=== PATIENT | male | born 1960 | race Caucasian/White ===

== ENCOUNTER → 2019-07-02 17:45 | Outpatient (CLI) | payer OTHER, SELFPAY ==
--- NOTE | 2019-07-02 | DI.MRI.S_ITS ---
PROCEDURE: MR KNEE LT WO CON INDICATIONS: Pain in left knee TECHNIQUE: Noncontrast sagittal PD fast spin echo and T2 fast spin echo with fat saturation, sagittal 3-D FLASH with fat saturation; coronal T1 spin echo and PD fast spin echo with fat saturation, and axial PD fast spin echo with fat saturation through the knee. COMPARISON: [facility] Outside Film, MR, MR KNEE LEFT WITHOUT CONTRAST, 05/29/2018, 15:59. [facility], CR, XR KNEE ARTHRITIC SERIES LT, 06/22/2019, 8:13. FINDINGS: Image quality: Excellent. Menisci: Patient appears to be status post partial medial meniscectomy, new compared to the prior examination. Residual linear high T2 signal intensity within the posterior horn medial meniscal remnant is present, demonstrating inferior articular surface extension. There is new amorphous high signal intensity within the posterior horn medial meniscus at the meniscal root ligament insertion site, demonstrating superior and inferior to the surface extension. Lateral meniscus is intact. Cruciate ligaments: The anterior cruciate ligament demonstrates mild posterior bowing and redundancy. Posterior cruciate ligament is intact. Medial structures: The medial collateral ligament appears intact. Visualized portions of the pes anserinus tendons appear normal. No abnormal bursal fluid. Lateral structures: The lateral collateral ligament, long and short heads of the biceps femoris tendon appear intact. The popliteus tendon appears normal. Iliotibial band appears normal. Anterior structures: The quadriceps and patellar tendons appear intact. Patellar alignment is normal. No femoral trochlear dysplasia or ventral trochlear prominence. No edema in the infrapatellar fat pad. Bones and cartilage: No bone marrow contusions or fractures. There is mild tricompartmental periarticular osteophyte formation. Mild subchondral degenerative marrow edema within the weightbearing aspects of the medial femoral condyle and medial tibial plateau. Severe diffuse articular cartilage loss overlies the weightbearing aspects of the medial femoral condyle and medial tibial plateau. Joint space: There is a small knee joint effusion and a small Levi's cyst. Normal appearing synovial plicae are incidentally noted. IMPRESSION: 1. Tricompartmental osteoarthritis with associated articular cartilage loss. 2. Post surgical sequelae involving the medial meniscus. There appears to be new degenerative tearing of the posterior horn medial meniscus remnant at the meniscal root ligament insertion site. 3. Partial-thickness tearing of the anterior cruciate ligament. 4. Small knee joint effusion and Levi's cyst. Dictated by: Jyoti Aquino M.D. on 07/03/2019 at 8:33 Approved by: Jyoti Aquino M.D. on 07/03/2019 at 8:41
== END ==
PROVIDERS: PCP Nurse Practitioner Family; Visit Provider Orthopaedic Surgery
DX: M25.562 Pain in left knee (principal); M17.12 Unilateral primary osteoarthritis, left knee; S83.242A Other tear of medial meniscus, current injury, left knee, initial encounter; S83.512A Sprain of anterior cruciate ligament of left knee, initial encounter; M25.462 Effusion, left knee; M71.22 Synovial cyst of popliteal space [Baker], left knee
CPT/HCPCS: 73721

== ENCOUNTER → 2019-07-06 08:47 | Outpatient (CLI) | payer OTHER, SELFPAY ==
[2019-07-06 09:34] LABS: Appearance Urine UA CLEAR; Bilirubin Urine UA NEGATIVE (NEGATIVE); Color Urine UA YELLOW; Glucose Urine UA 2+ g/dL (Negative); Ketones Urine UA NEGATIVE (NEGATIVE); Leukocyte Esterase Urine UA NEGATIVE (NEGATIVE); Nitrite Urine UA NEGATIVE (Negative); Occult Blood Urine UA TRACE-INTACT (Negative); Protein Urine UA NEGATIVE (Negative); Urobilinogen Urine UA 0.2 E.U./dL (0.2)
[2019-07-06 09:49] LABS: RBC Urine 0-1/HPF (0-5/HPF); Squamous Epithelial Cell Urine None Seen (0-5/HPF); WBC Urine 1-5/HPF (0-5/HPF)
[2019-07-06 09:50] LABS: Bacteria Urine Few (2-10); Calcium Oxalate Crystals Urine Few; Culture Indicated Urine Cult Not Indicated
[2019-07-06 10:05] LABS: Add Manual Diff / Slide Review NO; Basophils Absolute Auto 100 /uL (0-100); Basophils Percent Auto 0.8 % (0-2); Eosinophils Absolute Auto 200 /uL (0-450); Eosinophils Percent Auto 2.8 % (2-4); Hematocrit 43.5 % (41-53); Hemoglobin 14.6 g/dL (13.5-17.5); Lymphocytes Absolute Auto 1700 /uL (1100-4500); Lymphocytes Percent Auto 23.1 % (25-40); Mean Corpuscular HGB Conc 33.4 % (30-36); Mean Corpuscular Hemoglobin 29.1 PG (26-34); Mean Corpuscular Volume 86.9 fL (80-100); Monocytes Absolute Auto 600 /uL (0-900); Monocytes Percent Auto 8.5 % (3-14); Neutrophils Absolute Auto 4800 /uL (1500-7000); Neutrophils Percent Auto 64.8 % (50-75); Platelet Count 339 X10^3/uL (150-400); Red Blood Cell Count 5.01 X10^6/uL (4.5-5.9); Red Cell Distribution Width 15.8 % (11.6-14.8); White Blood Cell Count 7.4 X10^3/uL (4.5-11.0)
[2019-07-06 10:11] LABS: Hemoglobin A1C% w Est Avg Glu 6.4 % (4.0-6.0)
[2019-07-06 10:41] LABS: BUN Creatinine Ratio 22.9 (6-22); Blood Urea Nitrogen 16 mg/dL (9-20); Calcium 9.9 mg/dL (8.4-10.2); Carbon Dioxide 26 mmol/L (22-32); Chloride 103 mmol/L (98-107); Estimated Glomerular Filt Rate > 60.0 mL/min (>60); Glucose 124 mg/dL (70-100); HEMOLYSIS < 15 (0-50); Potassium 4.3 mmol/L (3.4-5.1); Sodium 139 mmol/L (137-145)
== END ==
PROVIDERS: Visit Provider Orthopaedic Surgery
DX: Z01.818 Encounter for other preprocedural examination (principal); Z01.812 Encounter for preprocedural laboratory examination; N39.9 Disorder of urinary system, unspecified; Z13.1 Encounter for screening for diabetes mellitus; R73.9 Hyperglycemia, unspecified
CPT/HCPCS: 36415; 80048; 81001; 83036; 85025; 93005; 93010

== ENCOUNTER 2019-09-18 06:12 | Inpatient (IN) | payer OTHER, SELFPAY ==
[2019-09-04 12:49] VITALS: BMI 29.8
[2019-09-18] VITALS (13 sets, daily range): BP systolic 100–127; BP diastolic 49–84; PULSE 74–91; RESP 11–18; TEMP 36.4–37.1; O2SAT 91–96; BMI 29.2
--- NOTE | 2019-09-18 06:00 | DI.RAD.S_ITS ---
PROCEDURE: XR KNEE LT 1TO2V INDICATIONS: post op TECHNIQUE: 2 views of the knee were acquired. COMPARISON: None. FINDINGS: Bones: No fractures or dislocations. No suspicious bony lesions. Post surgical changes related to total knee arthroplasty in expected alignment. Soft tissues: Postoperative changes, and drain. IMPRESSION: Expected postoperative appearance Dictated by: Ry Bermudez M.D. on 09/18/2019 at 11:20 Approved by: Ry Bermudez M.D. on 09/18/2019 at 11:21
[2019-09-18] MEDS: ACETAMINOPHEN 325 MG TABLET 975 MG PO (07:06)
[2019-09-18] MEDS: PREGABALIN 75 MG CAPSULE PO (07:06)
[2019-09-18] MEDS: CELECOXIB 200 MG CAPSULE PO (07:06)
[2019-09-18] MEDS: LACTATED RINGERS 1,000 ML 42 ML IV ×2 (07:12→09:28)
[2019-09-18] MEDS: VANCOMYCIN 1,000 MG/200 ML PIGGYBACK 200 MG IV (07:13)
--- NOTE | 2019-09-18 07:39 | PM.PREOP ---
Pre-operative Note Interval Note History & Physical reviewed/Exam performed by Physician: Yes Changes to H&P: No
--- NOTE | 2019-09-18 07:40 | P.OP_ITS ---
Operative Date/Time/Diagnoses Date of procedure: 09/18/19 Time of procedure: 07:40 Pre-op diagnosis: left knee OA Post-op diagnosis: same Procedure & Clinicians Procedure: Left total knee arthroplasty Same procedure as scheduled: Yes Indications: The patient has had progressively worsening left knee pain with radiographic changes consistent with arthritis. Non-operative management has failed and the patient has requested total knee replacement. The risks, benefits and alternatives to surgery were discussed with the patient prior to proceeding. Risks discussed included, but were not limited to, failure to relieve pain, stiffness, infection, nerve damage, deep venous thrombosis, pulmonary embolism, stroke, coma, heart attack, permanent paralysis and , as well as the potential need for eventual revision of the prosthetic. Surgeon: Citlalli Meneses Healthcare Technician: Jayesh Menon Anesthesia Type: General and Spinal Operative Notes Findings: Severe left knee medial compartment arthritis, good stability Closure Type: primary Specimen(s): none sent Prosthetic devices, grafts, tissues, transplants, or devices: Meneses and Nephew Journey BCS 2 size 6 femur, size 6 tibia, +9 poly, 38 mm patella Applied: drain(s) Estimated Blood Loss (mL): 250 Blood products transfused: none Tourniquet time (min): 86 Procedure in detail: The patient was seen in the pre-operative area, where the patient identified the left knee as the operative site and this was marked with my initials. The patient received pre-operative antibiotics, and was taken to the operating room and placed on the operative table in the supine position. After satisfactory anesthesia, a multimedia designer out was performed. The left leg was encircled with a tourniquet about the proximal thigh, and the leg was prepared from the toes to the tourniquet with ChloroPrep in the usual fashion and draped through sterile drapes. The leg was elevated and exsanguinated with Eschmark bandage and the tourniquet inflated to [250] mmHg pressure. The knee was approached through an approximately 18 cm incision centered over the patella and carried into the knee through a medial parapatellar arthrotomy. A portion of the medial and lateral meniscus was resected. Soft tissue was carefully mobilized around the patella the patella was measured with a caliper. Bone was resected from the patella and the patellar height was reconstituted with up an appropriate sized patellar component. A cover was then placed on the patella. A small amount of additional medial and lateral meniscus was resected. The visionare guide fit well to the distal femur. It looked like an appropriate distal femoral cut and the cut was made without difficulty. The rotation was assessed and the appropriate size femoral guide was placed on the distal femur and finishing cuts were made. There was no evidence of notching. The anterior, posterior and chamfer cuts were then made. The posterior osteophytes and soft tissues were then removed. The posterior capsule was injected with part of a mixture of 60 ml 0.25% Marcaine mixed with 20 ml Exparel for post operative pain control. The remainder of this mixture was injected into the capsule and subcutaneous tissues during cement curing. The tibia was prepared and the visionaire guide fit well to the distal tibia. The rotation was assessed. The patient was placed in extension residual medial and lateral meniscus as well as any residual bone was carefully resected. [No] additional tibia was resected. Hemostasis was achieved especially posteriorly. Additional local was injected into the posterior capsule. The extension gap was assessed and additional releases for gap balancing were performed as necessary. It was checked with the gap administrative assistant receptionist. The femoral component was trial was placed and the notch was finished. Trial tibial and femoral components were then placed and the knee placed through a range of motion. Range of motion was [0-130], with good stability throughout the range. The trials were then removed, and the tibia was finished. The bone was prepared with pulsatile lavage, and dried with a sponge. Cement was applied and the final prosthetics placed. Excess cement was removed during and after cement curing. A brief Betadine soak was performed. After confirming there was no extruded cement posteriorly, the final tibial insert was placed. The knee was copiously irrigated and the tourniquet deflated. Hemostasis was obtained with the Bovie cautery. A drain was placed and brought out superolaterally. The capsule was closed with interrupted Vicryl suture. The subcutaneous layer was closed with barbed sutures, and the skin with a running 3-0 V-Lock suture and Surgical glue. An Aquacel Ag dressing was applied and the patient was taken to recovery having tolerated the procedure well. Complications: none Post-operative Condition: stable Disposition: same day surgery Plan for aftercare: The patient will be maintained on a standard total knee replacement protocol with weight bearing as tolerated. The patient will receive aspirin and sequential compression devices for DVT prophylaxis. The patient will be discharged home when safe for the home environment.
[2019-09-18] MEDS: CEFAZOLIN 2 GM/100 ML FROZ.PIGGY IV (08:15)
--- NOTE | 2019-09-18 08:45 | SUR.OPER ---
Supine on padded OR bed. Pillow under head, arms secured on padded armboards <90 degree abduction. Safety belt across torso. Non-operative leg secured with tape over blanket over lower leg. Operative leg secured in DeMayo/Rito positioner. Foam padded brace at thigh of operative leg.
--- NOTE | 2019-09-18 08:49 | SUR.OPER ---
Late in OR because anesthesiologist was called in for epidural in OB.
[2019-09-18] MEDS: TRANEXAMIC ACID 1,000 MG VIAL 1000 MG INJ ×2 (08:51→09:50)
[2019-09-18] MEDS: BUPIVACAINE 0.25% W/ EPI (PF) 10 ML VIAL 60 ML INJ (08:51)
[2019-09-18] MEDS: BUPIVACAINE LIPOSOME 266 MG/20 ML VIAL INJ (08:51)
[2019-09-18] MEDS: SODIUM CHLORIDE IRRIG SOLUTION 250 ML, POVIDONE-IODINE SPONGE STICKS 1 APPLIC IRR (08:55)
[2019-09-18] MEDS: OXYCODONE/ACETAMINOPHEN 5/325 TABLET 1 TAB PO (11:02)
--- NOTE | 2019-09-18 11:20 | SUR.PREOP ---
Block start time [1120] . Monitoring initiated and maintained throughout procedure. Oxygen and medications given per anesthesiologist instructions. Patient remained stable throughout procedure, no adverse reactions noted. Block end time [1130].
--- NOTE | 2019-09-18 11:20 | SUR.PHASEI ---
Patient arrived awake, alert. Denies pain and nausea. Gave po pain medication preemptively. Tolerating po. WEEKS's x 4.
[2019-09-18] MEDS: LACTATED RINGERS 1,000 ML 125 ML IV (11:54)
[2019-09-18] MEDS: IBUPROFEN 400 MG TABLET PO ×2 (11:56→16:28)
[2019-09-18] MEDS: OXYCODONE IR 5 MG TABLET PO ×2 (13:25→16:28)
--- NOTE | 2019-09-18 13:25 | PT.IIE ---
Current Diagnoses Unilateral primary osteoarthritis, left knee (09/18/19) Surgery Performed Operation Date: 09/18/19 07:45 Actual Procedures p Total Knee Arthroplasty(Left) - Citlalli Meneses MD Medical History (Last Updated 09/04/19 @ 13:21 by Julieth Head RN) Acid reflux (Acute) Anxiety (Acute) Diabetes (Acute) Excessive daytime sleepiness (Inactive) HLD (hyperlipidemia) (Acute) HTN (hypertension) (Acute) Insomnia (Chronic) Obstructive sleep apnea of adult (Chronic) Periodic limb movement disorder (PLMD) (Chronic) Physical Therapy Inpatient Evaluation/Re-Eval M1 PT/OT-IP Prior Functional Status Start: 09/18/19 14:26 Freq: NEEDED Status: Active Protocol: Document 09/18/19 13:25 AB (Rec: 09/18/19 15:07 AB [id number]) Medical Review Prior Functional Status Medical History Reviewed Yes Communication able to make needs known Mobility and Gait pt stated that he is independent with all mobilities and ambulation without AD Social History Household Members spouse Living Arrangements House Number of Floors (Floors) Two Floors Number of Stairs To Enter/Railing? 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 M2 PT-IP Current Condition Start: 09/18/19 14:26 Freq: NEEDED Status: Active Protocol: Document 09/18/19 13:25 AB (Rec: 09/18/19 15:07 AB [id number]) Physical Therapy Current Condition Current Condition Evaluation Date 09/18/19 Treatment Diagnosis s/p L TKA; difficulty in walking Onset Date 09/18/2019 Weight Bearing Status Weight Bearing Status Weight Bear as Tolerated M3 PT-IP Subjective Start: 09/18/19 14:26 Freq: NEEDED Status: Active Protocol: Document 09/18/19 13:25 AB (Rec: 09/18/19 15:07 AB [id number]) Subjective Physical Therapy Visit Type Type Initial Evaluation Visit Start Time 13:25 Visit Stop Time 14:16 Total Visit Minutes 51 Number of MUD LOGGER Visits 0 Physical Therapy Visit Comments Patient Comments pt agreeable to do PT Therapy Pain Assessment Pain When Pain Assessed At Rest Pain Present Pain Present Pain Reported Location Left Knee Intensity 6 Scale Used Numeric (1 - 10) Pain Management Techniques Apply Cold,Re-positioning, Timing of Activity with Medications M4 PT-IP Mobility and Gait Start: 09/18/19 14:26 Freq: NEEDED Status: Active Protocol: Document 09/18/19 13:25 AB (Rec: 09/18/19 15:07 AB [id number]) PT-Bed Mobility Assessment Supine to Sit Supine to Sit Standby Assistance Scooting Scooting to Edge of Bed Standby Assistance PT-Transfer Assessment Sit to and From Stand Sit to and from Stand Contact Guard Assistance,1 Person Assistance,Use of Upper Extremities Equipment Transfer Assistive Device Gait Belt,Front Wheeled Walker Orthotic/Prosthetic Devices or Brace: No Transfers Transfer Destination Chair Transfer Technique ambulated using FWW Transfer Ability Level of Assist Standby Assistance,Contact Guard Assistance,1 Person Assistance Comments Mobility Comments BP: 104/68 pt supine in bed and requesting to use the toilet. completed supine to sit SBA. initially c/o lightheadedness but dissipated after a few seconds. BP 113/ 70. pt ambulated to the toilet using FWW SBA to CGA. pt was able to maintain standing using fWW for support SBA. pt ambulated more in room using FWW SBA to occasional CGA. pt rested and agreed to ambulate out in the hallway and completed. pt ambulated towards the stairs using FWW and completed up/ down platform step using FWW SBA to CGA. pt ambulated back to her room using FWW. positioned on chair. call light and table placed within reach. Gait Assessment Gait Gait Assistance Required: Standby Assistance,Contact Guard Assist Distance (Feet) 125 Able to Maintain Weight Bearing Status Yes During Gait Assistive Devices Assistive Device Gait Belt,Front Wheeled Walker Orthotic/Prosthetic Devices or Brace: No Factors Limiting Gait Function Factors Limiting Gait Function Decreased Activity Tolerance, Decreased Sensation,Decreased Strength,Pain,Poor Balance Comments Gait Comments pls refer to mobility section for details completed ambulation using FWW 125+100+ 50 +15 ft initially requiring CGA on 1st ambulation to the toilet but afterwards was only requiring SBA. Stair Climbing Assessment Evaluation Level of Assist On Stairs Standby Assistance,Contact Guard Assistance,1 Person Assistance Devices Stair Climbing Assistive Devices Front Wheel Walker Technique/Endurance Stair Climbing Direction Ascend and Descend Stair Climbing Technique Step Over Step Number of Steps Climbed 1 Query Text: Stair Climbing Set # Repetitions (reps) 2 PT-Balance Assessment Sitting Balance and Reactions Static Sitting Balance Ability Good Dynamic Sitting Balance Ability Good Standing Balance and Reactions Static Standing Balance Ability Fair Dynamic Standing Balance Ability Fair Device Used FWW M5 PT-IP Objective Assessments Start: 09/18/19 14:26 Freq: NEEDED Status: Active Protocol: Document 09/18/19 13:25 AB (Rec: 09/18/19 15:07 [id number]) Orientation Orientation/Cognition Level of Alertness Alert Orientation Name,Age,Birthday,Month,Date, Year,Day of Week,Place, Situation Language Function Ability No Deficits Noted Safety Awareness Understands Safety Issues Memory Description No Deficits Noted Gross Range of Motion Lower Extremity ROM Assessment Within Functional Limits Impairments L knee flexion: ~ 90 deg Strength Lower Extremity Strength Assessment Within Functional Limits Coordination Assessment Gross Coordination Gross Coordination WNL Sensation Assessment Sensation Sensation Description Numbness Comments Sensation Comments c/o numbness on buttocks area Muscle Tone Muscle Tone WNL Yes M6 PT-IP Treatment Start: 09/18/19 14:26 Freq: NEEDED Status: Active Protocol: Document 09/18/19 13:25 AB (Rec: 09/18/19 15:07 [id number]) Physical Therapy Treatment Education Education Provided Precautions,Weight Bearing Status,Post-Op Packet,Safety M7 PT-IP Assessment and Plan Start: 09/18/19 14:26 Freq: NEEDED Status: Active Protocol: Document 09/18/19 13:25 AB (Rec: 09/18/19 15:07 [id number]) PT Summary Assessment and Plan Potential Rehabilitation Potential Good Status of Condition at Evaluation Stable Summary Impairments Pain,ROM,Strength,Balance, Sensation,Bed Mobility, Transfers,Gait,Activity Tolerance Assessment Summary pt requiring SBA to occasional CGA with mobility. pt plans to go home with spouse to assist him. pt may go home when medically stable. pt stated that he is set up for outpt PT. Goals Bed Mobility Goal Independent Transfer Goal Independent,Front Wheeled Walker Gait Goal Independent,Front Wheel Walker Gait Distance 200 Other Goals up/down 1 step using FWW mod I up/down 14 steps 1 rail SBA Days to Meet Goals 3 Frequency of Treatment Frequency Of Treatment Twice a Day Treatment Plan Physical Therapy Treatment Plan Bed Mobility Training,Transfer Training,Gait Training, Therapeutic Exercise,Balance Retraining,Post Op Education, Discharge Planning,Hot or Cold Pack,Neuromuscular Re-ed, Coordination Retraining,Manual Therapy Recommendations To Nursing Amount of Assist Needed 1 Person Assist Discharge Recommendations PT Discharge Recommendations Home with Assistance, Outpatient PT
[2019-09-18] MEDS: ACETAMINOPHEN 325 MG TABLET 650 MG PO (13:26)
--- NOTE | 2019-09-18 14:28 | SUR.PREOP ---
1120 Block start time [] . Monitoring initiated and maintained throughout procedure. Oxygen and medications given per anesthesiologist instructions. Patient remained stable throughout procedure, no adverse reactions noted. Block end time [].
--- NOTE | 2019-09-18 16:08 | PC.NURSE ---
DC notes: Ox3, VS stable. Brayden voided 300 ml urine via urinal. I notified JOHNATHAN Davey that I received order to DC patient but did not have order to DC hemovac drain. She ordered to remove drain which I did. Hemovac with 100 ml sang drainage. Small folded 2x2 gauze pressure drsg applied. Instructed him if this gets saturated with blood to change 2x2 gauze drsg, instructed to leave Aquacel & tata wrap in place, per velasquez path protocol. Patient ambulated to for 2nd void, unmeasured. IVF stopped, IV DC'd, pressure drsg applied. IS teaching reinforced. assisted patient to dress. All belongings gathered, DC instructions provided. Patient ambulated in hallways with 1 SBA/FWW, gait steady. He rates left knee pain 6/10. Will medicate with 1 oxycodone prior to DC.
--- NOTE | 2019-09-19 08:30 | CM.DANOTE ---
DCP/Assessment: Reviewed chart. Cynthia is a 59yr old male admitted [facility] for left TKA performed on 09-18-19. PCP listed is Fareed Pat. Primary payor is 1)[place] [employer]. CM team attempted to see patient this AM, POD#1 but apparently patient had discharged from [facility] on same day of surgery with no identified d/c planning needs. 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 No History Provided By Medical Record Prior Living Arrangements House Household Members spouse Type of transporation used prior to Drives own vehicle admit Willing to Return to Facility? No Independent with ADL's Yes Caregiver for Another No DME Already Rented / Owned FWW / Walker Patient/Family Preference OP PT Therapy Barriers to Discharge No Transportation Arrangement Family Referrals Initiated None needed Whiteboard Updated in Patient Room with No name and ext. # of Leases And Land Supervisor Review Status In Process Next Review Type Continued Stay Review Pre-Anesthesia Assessment Start: 09/04/19 12:49 Freq: Status: Discharge Protocol: Document 09/04/19 12:49 CAB (Rec: 09/04/19 13:22 CAB [id number]) Pre-Anesthesia Assessment PAC Comment Unable to reach pt for scheduled PAC phone call, chart review only. Surgeon H& P not available at time of asssess. Preferred Name Don Patient Information Reviewed Via Phone Assessment Assessment Completed With Patient Diagnostic Results BMP/CMP,CBC,EKG,Urinalysis Comment Labs/EKG @ 07/06/19 Primary Care Provider Fareed Pat Seen Specialist in Last 12 Months Yes Specialist Seen Orthopedist,Sleep specialist Primary Language Thai Jute Bag Sewer Required No Height 180.34 cm Weight 97.069 kg Body Mass Index (BMI) 29.8 Anesthesia Review Requested No Smoking Status Current every day smoker Pain Present Pain Reported Patient is completely paralyzed or No completely immobile Mental Status Oriented to own ability Hx Sleep Apnea Yes CPAP/BIPAP use prescribed and used routinely Currently Taking a Beta Leeann No Anti-Coagulant Therapy No Hx Pacemaker/ICD No Pacemaker Rep Required? No Urinary Catheter Present No Hx Urinary Self Catheterization No Diabetes Yes HgbA1C 6.4 Date 07/06/19 Presence of External or Internal Medical Yes: CPAP Devices Marital Status Lives With spouse Patient Discharge Plan Description Return Home
== END 2019-09-18 16:35 | disposition home or self-care (01) | DRG 470 ==
PROVIDERS: Admitting Provider Orthopaedic Surgery; PCP Emergency Medicine Emergency Medical Services; Visit Provider Orthopaedic Surgery
PROC: 0SRD0JZ Replacement of Left Knee Joint with Synthetic Substitute, Open Approach (ICD-10-PCS; CPT 27447; principal; 2019-09-18 07:45)
DX: M17.12 Unilateral primary osteoarthritis, left knee (principal); I10 Essential (primary) hypertension; K21.9 Gastro-esophageal reflux disease without esophagitis; E11.9 Type 2 diabetes mellitus without complications; J44.9 Chronic obstructive pulmonary disease, unspecified; G47.33 Obstructive sleep apnea (adult) (pediatric); F17.210 Nicotine dependence, cigarettes, uncomplicated; Z79.84 Long term (current) use of oral hypoglycemic drugs
CPT/HCPCS: 64450; 73560; 82962; 97161; 97535; C1776; C9290; J0690; J1100; J2250; J2274; J2405; J2704; J3010

== ENCOUNTER → 2020-06-28 10:59 | Outpatient (CLI) | payer OTHER, SELFPAY ==
[2019-09-18 13:01] VITALS: BMI 29.2
--- NOTE | 2020-06-28 | DI.MRI.S_ITS ---
PROCEDURE: MR KNEE RT WO CON INDICATIONS: Unilateral primary osteoarthritis, right knee TECHNIQUE: Noncontrast sagittal PD fast spin echo and T2 fast spin echo with fat saturation, sagittal 3-D FLASH with fat saturation; coronal T1 spin echo and PD fast spin echo with fat saturation, and axial PD fast spin echo with fat saturation through the knee. COMPARISON: [facility], CR, XR KNEE ARTHRITIC SERIES BI, 06/20/2020, 13:19. [facility], MR, MR KNEE LT WO CON, 07/02/2019, 17:49. FINDINGS: Image quality: Excellent. Menisci: Medial extrusion of the medial meniscus is present. There is linear oblique high signal intensity traversing the posterior horn medial meniscus, demonstrating inferior articular surface extension, indicating oblique tearing. There is vague linear oblique high signal intensity within the lateral meniscal body and anterior horn, demonstrating inferior articular surface extension, indicating oblique tearing. Cruciate ligaments: The anterior and posterior cruciate ligaments appear intact. Medial structures: There is low-grade partial-thickness tearing of the anterior fibers of the medial collateral ligament, which demonstrates mild surrounding T2 signal elevation. Visualized portions of the pes anserinus tendons appear normal. There is mild T2 signal elevation within the semimembranosus at the musculotendinous junction. No abnormal bursal fluid. Lateral structures: The lateral collateral ligament demonstrates mild T2 signal elevation within its substance at the femoral origin. long and short heads of the biceps femoris tendon appear intact. The popliteus tendon appears normal. Iliotibial band appears normal. Anterior structures: The quadriceps and patellar tendons appear intact. Patellar alignment is normal. No femoral trochlear dysplasia or ventral trochlear prominence. No edema in the infrapatellar fat pad. Bones and cartilage: No bone marrow contusions or fractures. Subchondral cysts within the posterior nonweightbearing aspect of the medial femoral condyle and within the anterior weight-bearing aspect of the medial tibial plateau is present. There is moderate tricompartmental periarticular osteophyte formation. There is severe articular cartilage loss diffusely overlying the weight-bearing aspects of the medial femoral condyle and medial tibial plateau. Mild articular cartilage loss diffusely overlies the weight-bearing aspects of the lateral femoral condyle and lateral tibial plateau. Moderate articular cartilage loss overlies the medial femoral trochlea. Joint space: There is physiologic knee joint fluid. No Levi's cyst. Normal appearing synovial plicae are incidentally noted. There is a developing 30 mm ganglion cyst at the posteromedial aspect of the medial femoral condyle. IMPRESSION: 1. Tricompartmental osteoarthritis with associated articular cartilage loss. 2. Medial and lateral meniscal tearing. 3. Partial-thickness tears of the medial and lateral collateral ligaments. 4. Tendinopathy of the semimembranosus. 5. Small Levi's cyst. 6. Developing ganglion cyst at the posteromedial aspect of the medial femoral condyle. Dictated by: Jyoti Aquino M.D. on 06/30/2020 at 8:25 Approved by: Jyoti Aquino M.D. on 06/30/2020 at 8:30
== END ==
PROVIDERS: PCP Emergency Medicine Emergency Medical Services; Referring Provider Orthopaedic Surgery; Visit Provider Orthopaedic Surgery
DX: M17.11 Unilateral primary osteoarthritis, right knee (principal); S83.241A Other tear of medial meniscus, current injury, right knee, initial encounter; S83.281A Other tear of lateral meniscus, current injury, right knee, initial encounter; S83.411A Sprain of medial collateral ligament of right knee, initial encounter; S83.421A Sprain of lateral collateral ligament of right knee, initial encounter; M71.21 Synovial cyst of popliteal space [Baker], right knee; M67.461 Ganglion, right knee
CPT/HCPCS: 73721

== ENCOUNTER → 2020-08-18 07:26 | Outpatient (CLI) | payer OTHER, SELFPAY ==
[2019-09-18 13:01] VITALS: BMI 29.2
[2020-08-18 07:35] LABS: Bacteria Urine None Seen; RBC Urine None Seen (0-5/HPF); WBC Urine None Seen (0-5/HPF)
[2020-08-18 09:22] LABS: Hemoglobin A1C% w Est Avg Glu 6.8 % (4.0-6.0)
[2020-08-18 09:28] LABS: Add Manual Diff / Slide Review NO; Basophils Absolute Auto 200 /uL (0-100); Basophils Percent Auto 2.3 % (0-2); Eosinophils Absolute Auto 300 /uL (0-450); Eosinophils Percent Auto 3.5 % (2-4); Hematocrit 43.9 % (41-53); Hemoglobin 14.5 g/dL (13.5-17.5); Lymphocytes Absolute Auto 2600 /uL (1100-4500); Lymphocytes Percent Auto 30.7 % (25-40); Mean Corpuscular HGB Conc 33.1 % (30-36); Mean Corpuscular Hemoglobin 29.3 PG (26-34); Mean Corpuscular Volume 88.5 fL (80-100); Monocytes Absolute Auto 700 /uL (0-900); Monocytes Percent Auto 8.5 % (3-14); Neutrophils Absolute Auto 4700 /uL (1500-7000); Platelet Count 314 X10^3/uL (150-400); Red Blood Cell Count 4.96 X10^6/uL (4.5-5.9); Red Cell Distribution Width 14.2 % (11.6-14.8); White Blood Cell Count 8.6 X10^3/uL (4.5-11.0)
[2020-08-18 09:30] LABS: Appearance Urine UA CLEAR; Bilirubin Urine UA NEGATIVE (NEGATIVE); Color Urine UA YELLOW; Glucose Urine UA 2+ g/dL (Negative); Ketones Urine UA NEGATIVE (NEGATIVE); Leukocyte Esterase Urine UA NEGATIVE (NEGATIVE); Nitrite Urine UA NEGATIVE (Negative); Occult Blood Urine UA TRACE-LYSED (Negative); Protein Urine UA NEGATIVE (Negative); Urobilinogen Urine UA 0.2 E.U./dL (0.2); pH Urine UA 6.5 (4.5-8.0)
[2020-08-18 09:48] LABS: BUN Creatinine Ratio 22.4 (6-22); Blood Urea Nitrogen 15 mg/dL (9-20); Calcium 9.3 mg/dL (8.4-10.2); Carbon Dioxide 26 mmol/L (22-32); Chloride 107 mmol/L (98-107); Estimated Glomerular Filt Rate > 60.0 mL/min (>60); Glucose 114 mg/dL (70-100); HEMOLYSIS < 15 (0-50); Potassium 4.6 mmol/L (3.4-5.1); Sodium 139 mmol/L (137-145)
[2020-08-18 09:55] LABS: Culture Indicated Urine Cult Not Indicated; Urine Comments Microscopic Normal
== END ==
PROVIDERS: PCP Emergency Medicine Emergency Medical Services; Referring Provider Orthopaedic Surgery; Visit Provider Orthopaedic Surgery
DX: Z01.818 Encounter for other preprocedural examination (principal); R73.9 Hyperglycemia, unspecified; Z01.812 Encounter for preprocedural laboratory examination; N39.0 Urinary tract infection, site not specified
CPT/HCPCS: 36415; 80048; 81001; 83036; 85025; 93005

== ENCOUNTER → 2020-09-15 08:58 | Outpatient (CLI) | payer OTHER, SELFPAY ==
[2019-09-18 13:01] VITALS: BMI 29.2
[2020-09-15 10:07] LABS: COVID19 -Nasal RAPID Negative (Negative)
== END ==
PROVIDERS: PCP Emergency Medicine Emergency Medical Services; Referring Provider Orthopaedic Surgery; Visit Provider Physician Assistant
DX: Z20.822 Contact with and (suspected) exposure to COVID-19 (principal)
CPT/HCPCS: 87635

== ENCOUNTER 2020-09-16 06:28 | Day surgery (SDC) | payer OTHER, SELFPAY ==
[2019-09-18 13:01] VITALS: BMI 29.2
[2020-09-02 10:29] VITALS: BMI 29.9
[2020-09-16] VITALS (8 sets, daily range): BP systolic 92–119; BP diastolic 56–74; PULSE 76–106; RESP 10–17; TEMP 36.5–37; O2SAT 92–96; BMI 29.9
--- NOTE | 2020-09-16 06:00 | DI.RAD.S_ITS ---
PROCEDURE: XR KNEE RT 1TO2V INDICATIONS: post op UKA TECHNIQUE: 2 view(s) of the knee acquired. COMPARISON: [facility], CR, XR KNEE LT 1TO2V, 09/18/2019, 10:50. FINDINGS: Bones: Patient is status post medial right knee joint hemiarthroplasty. Hardware components are in expected positions. Visualized bony structures are intact. Soft tissues: Overlying postoperative changes are noted. IMPRESSION: Normal alignment after medial unicompartmental right knee hemiarthroplasty with a small air-fluid level in the suprapatellar bursal space as expected. Dictated by: Fareed Marino M.D. on 09/16/2020 at 14:36 Approved by: Fareed Marino M.D. on 09/16/2020 at 14:37
[2020-09-16] MEDS: LACTATED RINGERS 1,000 ML 42 ML IV ×2 (07:10→09:02)
[2020-09-16] MEDS: ACETAMINOPHEN 325 MG TABLET 975 MG PO (07:11)
[2020-09-16] MEDS: CELECOXIB 200 MG CAPSULE PO (07:11)
[2020-09-16] MEDS: PREGABALIN 75 MG CAPSULE PO (07:11)
[2020-09-16] MEDS: VANCOMYCIN 1,000 MG/200 ML PIGGYBACK 200 MG IV (07:11)
--- NOTE | 2020-09-16 07:41 | P.OP_ITS ---
Operative Date/Time/Diagnoses Date of procedure: 09/16/20 Time of procedure: 07:59 Pre-op diagnosis: right knee OA Post-op diagnosis: same Procedure & Clinicians Procedure: Right knee Medial unicompartment knee replacement Same procedure as scheduled: Yes Indications: The patient has had progressively worsening right knee pain with radiographic changes consistent with arthritis. Non-operative management has failed and the patient has requested right medial knee replacement. The risks, benefits and alternatives to surgery were discussed with the patient prior to proceeding. Risks discussed included, but were not limited to, failure to relieve pain, stiffness, infection, nerve damage, deep venous thrombosis, pulmonary embolism, stroke, coma, heart attack, permanent paralysis and , as well as the potential need for eventual revision of the prosthetic. Surgeon: Citlalli Meneses Riveting Machine Operator Automatic: Romelia Covington Anesthesia Type: General Operative Notes Findings: severe right knee medial compartment arthritis Closure Type: primary Specimen(s): none sent Prosthetic devices, grafts, tissues, transplants, or devices: Meneses and Nephew Zuk size D femur, size 4 tibia, +8 poly Estimated Blood Loss (mL): 250 Blood products transfused: none Tourniquet time (min): 72 Procedure in detail: The patient was seen in the pre-operative area, where the right knee was identified as the operative site and this was marked with my initials. The patient received pre-operative antibiotics, and was taken to the operating room and placed on the operative table in the supine position. After satisfactory anesthesia, a glassware selector out was performed. The right leg was encircled with a tourniquet about the proximal thigh, and the leg was prepared from the toes to the tourniquet with ChloroPrep in the usual fashion and draped through sterile drapes. The leg was elevated and exsanguinated with Eschmark bandage and the tourniquet inflated to [250] mmHg pressure. The knee was approached through an approximately 10 cm incision medial parapatella incision and carried into the knee through a medial parapatellar arthrotomy. The osteophytes and medial meniscus were removed. Next, a small amount of the anterior tibial boss was carefully resected with a saw. The guide was placed along the medial joint line. It was meticulously adjusted to make sure there was appropriate slope that it was at the joint line and then was pinned to the tibia and the femur. The medial femoral condylar cut was made in extension. The tibial cut was made in flexion. The bone was meticulously irrigated with normal saline. Small amount of additional meniscus was resected posterior capsule was checked and injected with Marcaine. The extension gap was carefully checked with an 8 mm gap glove operator was noted that it fit well. A small number of additional osteophytes were resected. The tibia was a size 4. It was noted that it fit without overhang. The femur was sized and it was noted to be a D. The appropriate cutting guide was pinned into place and carefully positioned on the femoral condyle. Drill holes were placed. The tibia was pinned into place and drill holes were made. Trial reduction with the appropriate poly showed full range of motion and good stability at 0, 45. and 90? with normal tracking of the components without edge loading. The bone was meticulously irrigated and dried. Additional Marcaine was injected. The posterior capsule was injected with 0.25% Marcaine mixed with 20 ml Exparel for post-operative pain control. The remainder of this mixture was injected into the capsule and subcutaneous tissues during cement curing. Range of motion was [0-130], with good stability throughout the range. The trials were then remove. The cement was as applied and the final p rosthetics placed. Excess cement was removed during and after cement curing. A brief medial compartment Betadine soak was performed. After confirming there was no extruded cement posteriorly, the final tibial insert was placed. The knee was copiously irrigated and the tourniquet deflated. Hemostasis was obtained. The capsule was closed with interrupted vicryl. The subcutaneous tissue was closed with barbed sutures. The skin with a running 3-0 V-Lock suture and surgical glue. An Aquacel Ag dressing was applied and the patient was taken to recovery having tolerated the procedure well. Complications: none Post-operative Condition: stable Disposition: Acute Care Plan for aftercare: The patient will be maintained on a standard unicompartment knee replacement protocol with weight bearing as tolerated. The patient will receive aspirin and sequential compression devices for DVT prophylaxis. The patient will be discharged home when safe for the home environment.
--- NOTE | 2020-09-16 07:41 | PM.PREOP ---
Pre-operative Note COVID-19 COVID-19 status: Negative Interval Note History & Physical reviewed/Exam performed by Physician: Yes Changes to H&P: No
[2020-09-16] MEDS: CEFAZOLIN 2 GM/100 ML FROZ.PIGGY IV (07:42)
--- NOTE | 2020-09-16 08:20 | SUR.OPER ---
Supine on padded OR bed. Pillow under head, arms secured on padded armboards <90 degree abduction. Safety belt across torso. Non-operative leg secured with tape over blanket over lower leg. Operative leg secured in Rito positioner. Foam padded brace at thigh of operative leg.
[2020-09-16] MEDS: BUPIVACAINE LIPOSOME 266 MG/20 ML VIAL INJ (08:27)
[2020-09-16] MEDS: BUPIVACAINE 0.25% W/ EPI 30 ML VIAL 60 ML INJ (08:27)
[2020-09-16] MEDS: TRANEXAMIC ACID 1,000 MG VIAL 2000 MG INJ ×2 (08:28→09:18)
[2020-09-16] MEDS: SODIUM CHLORIDE IRRIG SOLUTION 250 ML, POVIDONE-IODINE SPONGE STICKS 1 APPLIC IRR (08:30)
[2020-09-16] MEDS: fentaNYL 100 MCG/2 ML INJ IV ×2 (09:50→10:00)
[2020-09-16] MEDS: ONDANSETRON 4 MG/2 ML INJ IV (09:51)
[2020-09-16] MEDS: OXYCODONE IR 5 MG TABLET PO ×2 (10:11→10:27)
== END 2020-09-16 11:02 | disposition home or self-care (01) ==
PROVIDERS: PCP Nurse Practitioner; Referring Provider Orthopaedic Surgery; Visit Provider Orthopaedic Surgery
PROC: (CPT 27446; principal; 2020-09-16 07:45)
DX: M17.11 Unilateral primary osteoarthritis, right knee (principal); I10 Essential (primary) hypertension; E78.5 Hyperlipidemia, unspecified; G47.33 Obstructive sleep apnea (adult) (pediatric); K21.9 Gastro-esophageal reflux disease without esophagitis; I25.2 Old myocardial infarction; F17.210 Nicotine dependence, cigarettes, uncomplicated; E11.9 Type 2 diabetes mellitus without complications; Z79.84 Long term (current) use of oral hypoglycemic drugs
CPT/HCPCS: 27446; 73560; C1776; C9290; J0690; J2405; J2704; J3010

== ENCOUNTER 2022-02-26 10:29 | Emergency (ER) | payer OTHER, SELFPAY ==
[2019-09-18 13:01] VITALS: BMI 29.2
[2022-02-26 10:54] VITALS: BP 129/82; PULSE 104; RESP 16; TEMP 36.8; O2SAT 97; BMI 29.2
[2022-02-26] MEDS: TET,DIPH,PERTUSS(ACELL),VAC/PF 0.5 ML SYRINGE IM (12:21)
[2022-02-26] MEDS: LIDOCAINE 2% INJ MDV 1 ML INJ (12:29)
--- NOTE | 2022-02-26 12:53 | ED.WOUNDLAC ---
HPI - Wound/Laceration General Chief Complaint: Wound/Laceration Stated Complaint: sliced right by knuckle of L index finger Time Seen by Provider: 02/26/22 11:03 Source: patient Mode of arrival: Family Vehicle History of Present Illness HPI narrative: Patient was doing some work at home scraping paint. He ran the scraper into the dorsum of the left index finger. This caused a significant laceration with bleeding. He is not injured elsewhere. Related Data Home Medications Medication Instructions Recorded Confirmed atorvastatin 40 mg tablet 40 mg PO DAILY 10/30/18 09/16/20 losartan 100 1 tab PO DAILY 10/30/18 09/16/20 mg-hydrochlorothiazide 25 mg tablet Resmed Airsense 10 CPAP #1 ea 02/01/19 09/18/19 ipratropium 20 mcg-albuterol 100 1 puff inhalation PRN PRN 09/18/19 09/16/20 mcg/actuation mist for inhalation Shortness Of Breath (Combivent Respimat) pantoprazole 40 mg tablet,delayed 40 mg PO DAILY 09/18/19 09/16/20 release semaglutide 1 mg/dose (2 mg/1.5 1 mg SUBCUT QWEEK 09/18/19 09/16/20 mL) subcutaneous pen injector (Ozempic) aspirin 81 mg tablet,delayed 81 mg PO QPM 09/02/20 09/16/20 release (Adult Aspirin Regimen) empagliflozin 12.5 mg-metformin 2 tab PO QAM 09/02/20 09/16/20 1,000 mg tablet (Synjardy) Previous Rx's Medication Instructions Recorded acetaminophen 500 mg tablet 500 mg PO Q4H PRN pain (scale 09/18/19 (Tylenol Extra Strength) score 1-3) #60 tabs ibuprofen 200 mg tablet 200 mg PO Q4HR PRN inflammation 09/18/19 #60 tabs oxycodone 5 mg capsule 5 mg PO Q4H PRN pain #30 caps 09/16/20 Allergies Allergy/AdvReac Type Severity Reaction Status Date / Time No Known Drug Allergies Allergy Verified 09/16/20 06:43 Review of Systems Review of Systems Narrative: Detailed review of systems is negative other than as noted. Patient History Medical History (Updated 02/26/22 @ 11:56 by Ty Gastelum MD) Acid reflux Anxiety Diabetes Excessive daytime sleepiness HLD (hyperlipidemia) HTN (hypertension) Insomnia Obstructive sleep apnea of adult Periodic limb movement disorder (PLMD) Surgical History (Updated 09/02/20 @ 10:30 by Julieth Head RN) History of arthroplasty of left knee (09/18/19) Social History household members: spouse Smoking Status: Current every day smoker alcohol intake: never Smoking Status: Current every day smoker tobacco type: cigarettes alcohol intake frequency: 0-2 drinks per day Substance Use Type: does not use Exam Narrative Exam Narrative: GENERAL: Alert, cooperative and in no distress. HEAD: Atraumatic. Normocephalic. EYES: Sclera are clear without icterus. Extraocular movements are full. ENT: No rhinorrhea. Oropharynx is moist. Mouth exam is benign. NECK: Supple. Full range of motion. CARDIOVASCULAR: Normal rate and rhythm without murmur gallop or rub. RESPIRATORY: Clear to auscultation. Breath sounds equal bilaterally. No wheezes, rales, or rhonchi. GASTROINTESTINAL: Abdomen soft, non-tender, nondistended. EXTREMITIES: Laceration of the dorsal aspect of the left index finger just distal to the PIP joint. No tendon defect. No foreign material identified. Full extensor strength at the D IP PIP and MCP joints of the index finger BACK: Normal inspection, no CVA tenderness. NEURO: Nonfocal examination, normal speech, normal gait. SKIN: No rash or erythema of visible areas PSYCH: Normally oriented. Normal range of affect. Appropriate behavior Initial Vital Signs Initial Vital Signs: Vital Signs Temperature 98.2 F 02/26/22 10:54 Pulse Rate 104 H 02/26/22 10:54 Respiratory Rate 16 02/26/22 10:54 Blood Pressure 129/82 02/26/22 10:54 Pulse Oximetry 97 02/26/22 10:54 Oxygen Delivery Method 02/26/22 10:54 Procedures Laceration Repair Laceration 1: Time of procedure: 11:45 Site: upper extremity Size (cm): 1.5 Description: linear and clean Depth: simple, single layer Local Anesthetic: lidocaine 1% Amount of anesthesia used (mL): 2 Pre-repair: wound explored Skin layer closed with: nylon Skin layer suture size: 4-0 Number of sutures: 2 Technique: simple, interrupted Course Orders Ordered: Discontinued Medications Diphtheria/Tetanus/Acell Pertussis (Tet,Diph,Pertuss(Acell),Vac/Pf 0.5 Ml Syringe) 0.5 ml IM .ONCE ONE Stop: 02/26/22 11:31 Last Admin: 02/26/22 12:21 Dose: 0.5 ml Documented By: HUE Lidocaine HCl (Lidocaine 1% 20 Ml) 20 ml INJ INTRA-OP ONE Stop: 02/26/22 11:06 Last Admin: 02/26/22 12:27 Dose: Not Given Documented By: HUE Lidocaine HCl (Lidocaine 2% Inj Mdv) 1 ml INJ INTRA-OP ONE Stop: 02/26/22 12:29 Last Admin: 02/26/22 12:29 Dose: 1 ml Documented By: HUE Vital Signs Vital signs: Vital Signs - 8 hr 02/26/22 10:54 Temperature 98.2 F Pulse Rate 104 H Respiratory Rate 16 Blood Pressure 129/82 Pulse Oximetry 97 Oxygen Delivery Method Room Air MDM - Wound/Laceration Medical Records Medical records narrative: Wound repaired as above, tetanus shot updated. Discharge Plan Departure Patient Disposition: Home Clinical Impression: Finger laceration Instructions: DI for Laceration Repair Activity Restrictions/Additional Instructions: Sutures should be removed in about 14 days. Keep the wound clean and dry other than daily washing with soap and water. Use antibiotic ointment and a sterile dressing. Leave the dressing replaced today on for 24 hours unless it feels too tight and which would case you should rewrap it more loosely. If it seems to becoming infected with increasing redness swelling or pain, follow up right away for potential antibiotic treatment. Prescriptions: No Action Ozempic 1 mg/dose (2 mg/1.5 mL) Pen Injector 1 mg SUBCUT QWEEK pantoprazole 40 mg Tablet,Delayed Release (Dr/Ec) 40 mg PO DAILY Combivent Respimat 20-100 mcg/actuation Mist 1 puff INHALATION PRN PRN (Reason: Shortness Of Breath) acetaminophen [Tylenol Extra Strength] 500 mg tablet 500 mg PO Q4H PRN (Reason: pain (scale score 1-3)) Qty: 60 0RF Rx Instructions: take 1 tablet by mouth every 4 hours as needed for pain ibuprofen 200 mg tablet 200 mg PO Q4HR PRN (Reason: inflammation) Qty: 60 0RF Rx Instructions: take 2 tablets by mouth every 4 hours as needed for inflammation Synjardy 12.5-1,000 mg Tablet 2 tab PO QAM aspirin [Adult Aspirin Regimen] 81 mg tablet,delayed release (DR/EC) 81 mg PO QPM oxycodone 5 mg capsule 5 mg PO Q4H PRN (Reason: pain) Qty: 30 0RF atorvastatin 40 mg tablet 40 mg PO DAILY losartan-hydrochlorothiazide 100-25 mg tablet 1 tab PO DAILY (DME) Resmed Airsense 10 CPAP Qty: 1 Dose Instruction: As directed Label Comments: Pressure: 6-12 cmH2O DME: [facility] Rx Instructions: As directed Referrals: Bree Grajeda ARNP [Primary Care Provider] - Visit Report Forms: Patient Portal/API
== END 2022-02-26 12:32 | disposition home or self-care (01) ==
PROVIDERS: Emergency Provider Family Medicine Addiction Medicine; PCP Nurse Practitioner
DX: S61.211A Laceration without foreign body of left index finger without damage to nail, initial encounter (principal); W26.9XXA Contact with unspecified sharp object(s), initial encounter; Z23 Encounter for immunization
CPT/HCPCS: 12001; 90471; 99283; 99284; 90715

== ENCOUNTER → 2022-05-07 11:47 | Outpatient (CLI) | payer OTHER, SELFPAY ==
[2019-09-18 13:01] VITALS: BMI 29.2
--- NOTE | 2022-05-07 | DI.CT.S_ITS ---
PROCEDURE: CT CHEST WO CON INDICATIONS: Solitary pulmonary nodule TECHNIQUE: Noncontrast 5 mm thick sections acquired from the pulmonary apices to the posterior costophrenic angles. 1 mm lung window, 5 mm thick coronal and sagittal and 7 mm axial MIP reformats were then acquired. For radiation dose reduction, the following was used: automated exposure control, adjustment of mA and/or kV according to patient size. COMPARISON: [facility], , CT LUNG CANCER SCREENING, 03/19/2021, 7:42. FINDINGS: Image quality: Excellent. Lungs and pleura: A few small pulmonary nodules are present, examples include: -left upper lobe: 3 millimeters (3/105), unchanged. -right middle lobe: 3-4 millimeters (3/222), unchanged. -right middle lobe visual nodule: 3-4 millimeters (3/190), unchanged. Emphysema is present as before. Numerous new small ill-defined ground-glass and consolidative nodules present in both lungs, most pronounced at the upper lobes. No pleural effusion. Mediastinum: Heart size is normal. No pericardial effusion. Coronary calcifications are present. No mediastinal adenopathy by size criteria. Thoracic aorta and central pulmonary arteries are normal in size. Esophagus is normal in caliber. No hiatal hernia. Bones and chest wall: No suspicious bony lesions. No vertebral body compression fractures. No axillary or supraclavicular adenopathy by size criteria. Abdomen: Partially imaged left renal cortical cyst present as before, no suspicious features identified. IMPRESSION: 1. Previously indexed small pulmonary nodules are not significantly changed. 2. Numerous new ground-glass and consolidative nodules are present in both lungs, probably infectious/inflammatory. Correlation with patient's symptoms and history of smoking may be helpful. Could consider shorter interval follow-up if clinically indicated, for example in 3-6 months or other interval at clinical discretion. Dictated by: Fred Rose M.D. on 05/10/2022 at 17:10 Approved by: Fred Rose M.D. on 05/10/2022 at 17:24
== END ==
PROVIDERS: PCP Nurse Practitioner; Referring Provider Nurse Practitioner; Visit Provider Nurse Practitioner
DX: R91.8 Other nonspecific abnormal finding of lung field (principal); Z72.0 Tobacco use
CPT/HCPCS: 71250

== ENCOUNTER → 2023-04-21 06:57 | Outpatient (CLI) | payer OTHER, SELFPAY ==
[2019-09-18 13:01] VITALS: BMI 29.2
--- NOTE | 2023-04-21 | DI.CT.S_ITS ---
PROCEDURE: CT LUNG LOW DOSE SCREENING INDICATIONS: Tobacco use TECHNIQUE: Noncontrast 2.0-2.5 mm thick sections acquired from the pulmonary apices to the posterior costophrenic angles. 7 mm thick axial MIP, and 5 mm coronal and sagittal reformats were then acquired. A low radiation dose technique was utilized. COMPARISON: CT chest 05/07/2022, CT lung cancer screen 03/19/2021 FINDINGS: Image quality: Diagnostic, given the low radiation dose technique. Lungs and pleura: Moderate centrilobular emphysema, as before. Interval resolution of upper lobe predominant ground-glass and patchy nodularity since 05/07/2022. Scattered pulmonary nodules as follows: -3 mm left upper lobe nodule (3/105), stable -4 mm right middle lobe nodule (3/227), stable Stable right sub visual nodules along the major fissure (3/172 and 193, sagittal image 66 and 70). Mediastinum: Heart size is normal. No pericardial effusion. Coronary artery and aortic arch calcifications are present. No mediastinal adenopathy by size criteria. Thoracic aorta and central pulmonary arteries are normal in size. Esophagus is normal in caliber. No hiatal hernia. Bones and chest wall: No suspicious bony lesions. No vertebral body compression fractures. No axillary or supraclavicular adenopathy by size criteria. Thyroid gland normal. Abdomen: Partially visualized left simple cyst. Remainder of visualized upper abdomen solid organs and bowel loops appear normal in the absence of contrast. IMPRESSION: 1. Stable sub 6 mm pulmonary nodules. No new or enlarging nodule since 05/07/2022. 2. Interval resolution of previously seen ground-glass and consolidative nodules since 05/07/2022. LUNG-RADS 2; Continue annual screening with low-dose CT chest in 12 months. S modifier: Coronary artery calcifications. Approved by: Eufemia Zavala M.D. on 04/21/2023 at 10:16
== END ==
PROVIDERS: PCP Nurse Practitioner; Referring Provider Nurse Practitioner; Visit Provider Nurse Practitioner
DX: Z72.0 Tobacco use (principal); Z12.2 Encounter for screening for malignant neoplasm of respiratory organs; R91.8 Other nonspecific abnormal finding of lung field; I25.10 Atherosclerotic heart disease of native coronary artery without angina pectoris
CPT/HCPCS: 71271

== ENCOUNTER → 2024-04-05 08:25 | Outpatient (CLI) | payer OTHER, SELFPAY ==
[2019-09-18 13:01] VITALS: BMI 29.2
--- NOTE | 2024-04-05 08:29 | DI.CT.S_ITS ---
PROCEDURE: CT LUNG LOW DOSE SCREENING INDICATIONS: Tobacco use TECHNIQUE: Noncontrast 2.0-2.5 mm thick sections acquired from the pulmonary apices to the posterior costophrenic angles. 7 mm thick axial MIP, and 5 mm coronal and sagittal reformats were then acquired. For radiation dose reduction, the following was used: automated exposure control, adjustment of mA and/or kV according to patient size. COMPARISON: [facility], CT, CT LUNG LOW DOSE SCREENING, 04/21/2023, 7:15. FINDINGS: Image quality: Diagnostic. Lower Neck: No enlarged lymph nodes. Thyroid: No abnormality demonstrated. Axillae: No enlarged lymph nodes. Chest Wall: Unremarkable. Bones: Mild the spurring in the thoracic spine. Lungs and Pleura: Moderate centrilobular emphysema. Stable nodule again noted along the right major fissure. No new nodular lesions. No acute inflammatory changes. No pleural effusion or pneumothorax. Heart: Heart size is normal. No pericardial effusion. Arterial calcifications are seen in the aorta and coronary arteries. Thoracic Vessels: The aorta and pulmonary arteries demonstrate normal size. Mediastinum and Nathalia: No enlarged lymph nodes. Esophagus: No wall thickening. No hiatal hernia. Upper Abdomen: Visualized upper abdomen solid organs and bowel loops appear normal. IMPRESSION: Central lobular emphysema. Stable right lung nodule along the major fissure. Lung rads category grade 2 benign. Her uric occasions including coronary arteries.. REFERENCE TEXT DELETE FROM FINAL REPORT ACR Lung-RADS v 1.0: 12/24/2013 release date. Lung-RADS 0: Prior chest CT needed for comparison. Part of all of lungs cannot be evaluated. Lung-RADS 1: No nodules or definitely benign nodules, continue annual screening in 12 months. * Nodules with specific calcifications: complete, central, popcorn, concentric rigns and fat containing nodules. Lung-RADS 2: Very low likelihood of becoming clinically active CA due to size or lack of growth, continue annual screening in 12 months. * Solid nodules: < 6 mm or new < 4 mm. * Part solid nodules: < 6 mm total diameter on baseline. * Non-solid or ground-glass nodules: < 20 mm OR 20 mm or more (unchanged or slowly growing). * Category 3 and 4 nodules unchanged for 3 months or more. Lung-RADS 3: Probably benign; recommend [address] * Solid nodules: 6 to <8 mm at baseline OR new 4 to <6 mm nodule. * Part solid nodules: 6 mm or more with solid component of < 6 mm OR new < 6 mm lesion. * Non-solid or ground-glass nodules: 20 mm or more on baseline, or new. Lung-RADS 4A: Suspicious; recommend 3-month followup CT, or PET-CT when there is a solid component of 8 mm or more. * Solid nodules: 8 to <15 mm at baseline, OR growing < 8 mm, OR new 6 to <8 mm. * Part-solid nodules: 6 mm ore more with solid component 6 to < 8 mm, OR with new/growing < 4 mm solid component. * Endobronchial nodule. Lung-RADS 4B: Suspicious; recommend chest CT with or without contrast, PET-CT and/or biopsy. PET-CT may be used if there is a solid component of 8 mm or more. * Solid nodules: 15 mm or more, OR new/growing 8 mm or more. * Part-solid nodules: solid component of 8 mm or more, OR new/growing solid component of 4 mm or more. Lung-RADS 4X: Category 3-4 nodules with additional features or findings that increase the suspicion for malignancy. Treat the same as 4B. * Examples: spiculated margins, ground-glass nodule doubling in size in 1 year, enlarged lymph nodes. S modifier: Clinically significant or potentially clinically significant findings (not lung CA). C modifier: Patients with prior dx of lung CA who return to screening. Growth: defined as size increase of > 1.5 mm. >> Dictated by: Andres Ivey M.D. on 04/05/2024 at 11:34 Approved by: Andres Ivey M.D. on 04/05/2024 at 12:03
== END ==
PROVIDERS: PCP Nurse Practitioner; Referring Provider Nurse Practitioner; Visit Provider Nurse Practitioner
DX: Z12.2 Encounter for screening for malignant neoplasm of respiratory organs (principal); F17.210 Nicotine dependence, cigarettes, uncomplicated; R91.1 Solitary pulmonary nodule; J43.2 Centrilobular emphysema
CPT/HCPCS: 71271

== ENCOUNTER → 2025-03-18 09:46 | Outpatient (CLI) | payer OTHER, SELFPAY ==
[2019-09-18 13:01] VITALS: BMI 29.2
--- NOTE | 2025-03-18 09:47 | DI.CT.S_ITS ---
PROCEDURE: CT LUNG LOW DOSE SCREENING INDICATIONS: low dose screening TECHNIQUE: Noncontrast 2.0-2.5 mm thick sections acquired from the pulmonary apices to the posterior costophrenic angles. 7 mm thick axial MIP, and 5 mm coronal and sagittal reformats were then acquired. For radiation dose reduction, the following was used: automated exposure control, adjustment of mA and/or kV according to patient size. COMPARISON: [facility], CT, CT LUNG LOW DOSE SCREENING, 04/05/2024, 8:32. FINDINGS: Image quality: Diagnostic. Lungs and Pleura: There is slight mucus dependent in the central airways. No bronchial wall thickening, or significant bronchiectasis. There are occasional scattered peripheral airways with mucous plugging. Subsegmental atelectatic change present in the caudal lingula. Mild centrilobular emphysema. Juxta fissural nodules in the right upper and middle lobe regions. 5 mm right middle lobe subpleural nodule is stable. No new nodules. No pleural effusions or pleural calcifications. Lower Neck: No enlarged lymph nodes. Thyroid: Normal CT appearance. Axillae: No enlarged lymph nodes. Chest Wall: No suspicious chest wall lesions. Bones: No suspicious bone lesion. Mild degenerative changes in the spine. Thoracic Vessels: The aorta and pulmonary arteries demonstrate normal size. Mild arch calcification. Mediastinum and Nathalia: No enlarged lymph nodes. Heart: Heart size is normal. No pericardial effusion. Moderate coronary artery calcification. Esophagus: No wall thickening. No hiatal hernia. . Upper Abdomen: Partially imaged left upper pole renal cyst. Visible portions of upper abdominal organs are otherwise normal. IMPRESSION: No new nodules. Stable juxta fissural and right middle lobe subpleural nodules. LUNG-RADS 1; continued annual screening, if eligible. Clinically Significant Non-pulmonary Findings: Moderate coronary artery calcification. Dictated by: Su Hayes M.D. on 03/18/2025 at 13:09 Approved by: Su Hayes M.D. on 03/18/2025 at 13:16
== END ==
LOC: CT 09:46
PROVIDERS: PCP Nurse Practitioner; Referring Provider Nurse Practitioner; Visit Provider Nurse Practitioner
DX: Z12.2 Encounter for screening for malignant neoplasm of respiratory organs (principal); F17.210 Nicotine dependence, cigarettes, uncomplicated; R91.8 Other nonspecific abnormal finding of lung field; I25.10 Atherosclerotic heart disease of native coronary artery without angina pectoris
CPT/HCPCS: 71271